=== PATIENT | male | born 1960 | race African-American/Black ===

== ENCOUNTER 2016-11-04 11:48 | Emergency (ER) | payer OTHER ==
[~2016-11-04] VITALS: Ht 190.5 cm; Wt 97.5 kg
[~2016-11-04 11:48] MED LIST: ALFUZOSIN HCL10 MG PO; AUGMENTIN 875-1 EAC1 ORAL; COLACE100 MG ORAL; GABAPENTIN600 MG ORAL; IBUPROFEN600 MG ORAL; NAPROSYN500 M1 ORAL; NORCO 5-325 TA1 EACH ORAL; PROSCAR5 MG ORAL; SOMA350 MG PO
--- NOTE | 2016-11-04 12:14 | Emergency Room Report ---
History of Present Illness General Chief Complaint: Lower Extremity Injury Source: Patient, Medical Record Present Illness HPI The patient is a 56-year-old male presenting with left foot fifth toe pain. The patient states that he dropped a 25 pound weight onto the toe 1 week prior. The patient states pain has decreased but is still a 5/10 dull ache. It does not radiate from the fifth toe. Pain worse with walking and touch. He has noticed swelling and bruising to the area. He has not tried pain medications. He denies any numbness or tingling. Denies any other symptoms including fever, chills, rash Allergies: Coded Allergies: NO KNOWN ALLERGIES (Unverified Allergy, Unknown, 03/07/15) Patient History Past Medical History: see triage record Pertinent Family History: none Reviewed Nursing Documentation: PMH: Agreed, PSxH: Agreed Nursing Documentation-PMH Hx Neurological Problems: Yes - nerve damage Review of Systems All Other Systems: negative except mentioned in HPI Physical Exam Vital Signs Date Time Temp Pulse Resp B/P Pulse Ox O2 Delivery O2 Flow Rate FiO2 11/04/16 11:55 97.9 70 16 141/80 99 Room Air Sp02 EP Interpretation: reviewed, normal General Appearance: no apparent distress, alert, GCS 15, non-toxic Head: normocephalic, atraumatic Eyes: bilateral eye PERRL, bilateral eye normal inspection ENT: hearing grossly normal, normal pharynx, no angioedema, normal voice Neck: full range of motion, supple/symm/no masses Respiratory: chest non-tender, lungs clear, normal breath sounds, speaking full sentences Musculoskeletal: normal range of motion, swelling, tender - TTP over the distal L 5th toe. Over the DIPJ Neurologic: alert, oriented x3, responsive, motor strength/tone normal, sensory intact, speech normal Psychiatric: judgement/insight normal, memory normal, mood/affect normal, no suicidal/homicidal ideation Skin: other - Ecchymosis over the dorsal surface of the L distal 5th toe Lymphatic: no adenopathy Procedures Splinting Splinting : Consent: Verbal Location: L 5th toe Pre-Made Type: rafiq tape Splint: Pre-Proc Neuro Vasc Exam: normal Post-Proc Neuro Vasc Exam: normal Patient Tolerated: Well Complications: None Medical Decision Making PA Attestation Dr. mancuso is my supervising physician. Patient management was discussed with my supervising physician Diagnostic Impression: Primary Impression: Toe fracture, left Qualified Codes: S92.515A - Nondisplaced fracture of proximal phalanx of left lesser toe(s), initial encounter for closed fracture ER Course The patient is a 56-year-old male presenting with left toe pain after dropping a 25 pound weight on it Ddx considered include but not limited to sprain/strain, fracture, contusion Physical exam: vitals WNL. NAD Left foot: There is tenderness to palpation over the distal dorsal aspect of the fifth digit. Full active range of motion. There is edema with ecchymosis. Skin intact There is a nondisplaced fracture of the proximal phalanx. Retake was placed with a cast/walking shoe. Pt given RICE instructions and will FU with PMD ER precautions given Other X-Ray Diagnostic Results Other X-Ray Diagnostic Results : X-Ray Ordered: L foot Date: November 04, 2016 EP Interpretation: Yes Findings: no dislocation, other - fracture of proximal phalynx Number of Views: 3 PA Scribe Text I am acting as scribe for my supervising physician. My supervising physician's interpretation of the L foot xrays are there are is a fracture of the proximal phalanx. No dislocations Last Vital Signs Date Time Temp Pulse Resp B/P Pulse Ox O2 Delivery O2 Flow Rate FiO2 11/04/16 11:55 97.9 70 16 141/80 99 Room Air Status: improved Disposition: HOME, SELF-CARE Condition: Improved Scripts Ibuprofen* (MOTRIN*) 600 Mg Tablet 600 MG ORAL Q8H Y for For Pain, #30 TAB 0 Refills Prov: RAVEN ZAMUDIO 11/04/16 RAVEN ZAMUDIO November 04, 2016 12:14
[2016-11-04] MEDS ORDERED: IBUPROFEN600 MG ORAL (12:45)
--- NOTE | 2016-11-04 12:53 | Diagnostic Imaging Report ---
Indication: Pain Comparison: None Findings: 3 views of the left foot were obtained. No acute fractures, malalignment, erosions or periostitis are identified. Bone mineralization is within normal limits. Soft tissues are unremarkable. Osteophytes noted at the talonavicular joint projecting dorsally. Impression: No acute findings. Osteoarthritis
[2016-11-04 13:00] VITALS: BP 141/80
== END 2016-11-04 13:00 | disposition home or self-care (01) ==
LOC: EMR 12:30
DX: S92.515A Nondisplaced fracture of proximal phalanx of left lesser toe(s), initial encounter for closed fracture (principal); W20.8XXA Other cause of strike by thrown, projected or falling object, initial encounter; Y92.89 Other specified places as the place of occurrence of the external cause
CPT/HCPCS: 29540; 99283

== ENCOUNTER 2017-02-25 10:18 | Emergency (ER) | payer OTHER ==
[~2017-02-25] VITALS: Ht 190.5 cm; Wt 94.3 kg
[2017-02-25 11:33] LABS: APPEARANCE,URINE CLEAR; KETONES,URINE NEGATIVE (NEGATIVE); LEUKOCYTE ESTERASE ,URINE 1+ (NEGATIVE); NITRITE,URINE NEGATIVE (NEGATIVE); PH,URINE 5 (4.5-8.0); PROTEIN,URINE 2+ (NEGATIVE); UROBILINOGEN,URINE 1 MG/DL (0.0-1.0)
[2017-02-25 11:36] LABS: BASOPHILS % (AUTO) 1.4 % (0.0-2.0); EOSINOPHILS % (AUTO) 2.4 % (0.0-3.0); LYMPHOCYTES % (AUTO) 30.2 % (20.0-45.0); MEAN CORPUSCULAR HEMOGLOBIN 32.2 PG (27.0-31.0); MEAN CORPUSCULAR HGB CONC 33.9 G/DL (32.0-36.0); MEAN CORPUSCULAR VOLUME 95 FL (80-99); MEAN PLATELET VOLUME 5.5 FL (6.5-10.1); MONOCYTES % (AUTO) 8.1 % (1.0-10.0); PLATELET COUNT 288 K/UL (150-450); RED CELL DISTRIBUTION WIDTH 12.4 % (11.6-14.8); WHITE BLOOD COUNT 4.3 K/UL (4.8-10.8)
[2017-02-25 11:48] LABS: BACTERIA,URINE FEW /HPF; SQUAMOUS EPITHELIAL CELL,UR FEW /LPF (NONE/OCC)
[2017-02-25 11:56] LABS: ALANINE AMINOTRANSFERASE 24 U/L (3-41); ALBUMIN/GLOBULIN RATIO 1.4 (1.0-2.7); ANION GAP 11 (5-15); ASPARTATE AMINO TRANSFERASE 32 U/L (5-40); CALCIUM 9.8 mg/dL (8.6-10.2); CARBON DIOXIDE 25 mEQ/L (20-30); CHLORIDE 102 mEQ/L (98-107); GLOMERULAR FILTRATION RATE > 60 mL/min (>60); HEMOLYSIS 11; LIPASE 24 U/L (< 60); POTASSIUM 3.9 mEQ/L (3.4-4.9); SODIUM 138 mEQ/L (135-145); TOTAL PROTEIN 7.2 g/dL (6.6-8.7)
[2017-02-25 12:12] VITALS: BP 118/78
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
[2017-02-25 14:03] VITALS: BP 118/78
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
== END 2017-02-25 14:12 | disposition home or self-care (01) ==
LOC: EMR 11:20
DX: R10.9 Unspecified abdominal pain (principal)
CPT/HCPCS: 36415; 74177; 80053; 81003; 83690; 85025; 99284; Q9967